=== PATIENT | male | born 1935 | race Caucasian/White ===

== ENCOUNTER → 2017-12-18 | Outpatient (CLI) | payer OTHER ==
[~2017-12-18] MED LIST: ACEDIPPM PO; CIPR500 PO; DICL75ER PO; FISH1000 PO; HYDR1TAB94 PO; IRON PO; MELO7.5 PO; MULVITMIND PO; NAPR220 PO; OMEG1CAP30 PO; OMEP20ER PO; OSTEO BI-FLEX PO; OXYB5 PO; Omeprazole20 M1 PO; PROACE100 PO; PROBIOTIC PO; Pyridium200 MG PO; SERT50 PO; STOMUL PO; TAMS.4ER PO; TERA5 PO; ZOLP10 PO
== END | disposition home or self-care (01) ==
LOC: PLD 08:20 → LAB SHORT 08:20
DX: D48.5 Neoplasm of uncertain behavior of skin (principal)
CPT/HCPCS: 88305

== ENCOUNTER 2022-11-24 09:20 | Day surgery (SDC) | payer OTHER ==
[~2022-11-24] VITALS: Ht 172.7 cm; Wt 85.3 kg
[2022-11-24 11:52] VITALS: BP 121/66
--- NOTE | 2022-11-24 12:10 | NUR ---
11/24/22 1210 WILLIAMS PONCE PT WAS TOLD THAT HE HAD A RECATL MASS/ REFERRING PT FOR A CT SCAN NEXT WEEK
== END 2022-11-24 12:10 | disposition home or self-care (01) ==
LOC: ORSCSDS 09:20
PROVIDERS: Surgery
PROC: 0DBP8ZX Excision of Rectum, Via Natural or Artificial Opening Endoscopic, Diagnostic (ICD-10-PCS; principal; 2022-11-24 10:30)
PROC: 0DBH8ZX Excision of Cecum, Via Natural or Artificial Opening Endoscopic, Diagnostic (ICD-10-PCS; principal; 2022-11-24 10:30)
PROC: 0DBF8ZX Excision of Right Large Intestine, Via Natural or Artificial Opening Endoscopic, Diagnostic (ICD-10-PCS; principal; 2022-11-24 10:30)
DX: K62.5 Hemorrhage of anus and rectum (principal); R19.4 Change in bowel habit; C20 Malignant neoplasm of rectum; D12.5 Benign neoplasm of sigmoid colon; D12.2 Benign neoplasm of ascending colon; K21.9 Gastro-esophageal reflux disease without esophagitis; Z79.899 Other long term (current) drug therapy
CPT/HCPCS: 88305; J2704; J7120